=== PATIENT | female | born 1955 | race Caucasian/White ===

== ENCOUNTER 2016-07-12 10:33 | Emergency (ER) | payer MEDICAID ==
[~2016-07-12] VITALS: Ht 182.9 cm; Wt 78.0 kg
[2016-07-12 10:44] VITALS: BP 155/95
[2016-07-12 11:18] LABS: Basophils # (auto) 0 uL; Basophils % (auto) 0.4 % (0.0-2.0); Eosinophils # (auto) 0.1 uL; Eosinophils % (auto) 0.6 % (0.0-7.0); Hematocrit 42.9 % (36.0-46.0); Hemoglobin 14.5 g/dL (12.2-16.2); Lymphocytes # (auto) 1.3 uL; Lymphocytes % (auto) 12.6 % (10.0-50.0); Mean Corpuscular Hgb Conc. 33.8 g/dL (32.0-36.0); Mean Corpuscular Volume 88.9 fL (80.0-100.0); Mean Platelet Volume 8.3 fL (7.4-10.4); Monocytes # (auto) 0.4 uL; Monocytes % (auto) 3.4 % (0.0-12.0); Neutrophils # (auto) 8.7 uL; Platelet Count (auto) 393 10^3/uL (140-450); Red Cell Distribution Width 12.5 % (11.6-16.0); White Blood Cell 10.5 10^3/uL (4.4-10.8)
[2016-07-12 11:42] LABS: Albumin 3.9 g/dL (3.4-5.0); Alkaline Phosphatase 91 U/L (45-117); Anion Gap 9 (5-15); Aspartate Aminotransferase 17 U/L (15-37); Bilirubin, Total 0.6 mg/dL (0.2-1.0); Blood Urea Nitrogen 9 mg/dL (7-18); Calcium 9.1 mg/dL (8.5-10.1); Carbon Dioxide 24 mmol/L (21-32); Chloride 110 mmol/L (98-107); GFR African American 102 mL/min; GFR Non-African American 84 mL/min; Glucose 106 mg/dL (74-106); Potassium 4.1 mmol/L (3.5-5.1); Sodium 143 mmol/L (136-145); Total Protein 7.3 g/dL (6.4-8.2)
== END 2016-07-12 14:01 | disposition left against medical advice (07) ==
LOC: ER 10:33
DX: R07.89 Other chest pain (principal); Z53.21 Procedure and treatment not carried out due to patient leaving prior to being seen by health care provider
CPT/HCPCS: 36415; 80053; 84484; 85025; 93005